=== PATIENT | male | born 1960 | race Caucasian/White ===

== ENCOUNTER → 2019-07-28 | Outpatient (CLI) | payer OTHER ==
--- NOTE | 2019-07-28 09:24 | KCIC ---
EXAM: Dual energy x-ray absorptiometry (DEXA). HISTORY: Hyperparathyroidism. Diabetes. Osteoporosis screening. COMPARISON: None. TECHNIQUE: Dual energy x-ray absorptiometry of the lumbar spine and left hip was performed. Calculation of bone mineral density based on standard deviations above or below the expected young adult normal value (T-score) was completed. FINDINGS: The average bone mineral density in the 1st through 4th lumbar vertebrae is 1.069 g/cmxcm, corresponding with a T-score of -0.0. The average total bone mineral density in the left hip is 0.675 g/cmxcm, corresponding with a T-score of -0.4. IMPRESSION: Normal bone mineral density. Note: Definitions established by the [employer]: 1. Normal: T-score is -1.0 or above. 2. Osteopenia: T-score is between -1.0 and -2.5 . 3. Osteoporosis: T-score is -2.5 or below. Electronically signed by: Hue Hicks MD (07/28/2019 9:20 AM) [id number]
== END | disposition home or self-care (01) ==
LOC: KCIC DEXA 07:59
PROVIDERS: ATTEND Family Medicine
DX: M81.0 Age-related osteoporosis without current pathological fracture (principal); E21.3 Hyperparathyroidism, unspecified; E11.9 Type 2 diabetes mellitus without complications
CPT/HCPCS: 77080